=== PATIENT | male | born 1980 | race Caucasian/White ===

== ENCOUNTER 2023-12-21 01:50 | Emergency (ER) | payer SELFPAY ==
[2023-12-21 01:52] VITALS: BP 145/80; PULSE 68; RESP 22; TEMP 35.4; O2SAT 98; BMI 28.2
[2023-12-21] MEDS: 0.9% Normal Saline (1000mL) 1,000 ML 999 ML IV (02:34)
[2023-12-21 02:39] LABS: Mucous, Urine 0 SEEN /hpf (<or=2+)
[2023-12-21 02:40] LABS: Color, Urine Yellow (Yellow); Glucose, Dipstick Normal (Normal); Ketone-Dipstick 5 mg/dl (Negative); Leukocyte Esterase-Dipstick 25 /ul (Negative); Nitrite-Dipstick Positive (Negative); Occult Blood-Urine 250 /ul (Negative); Protein-Dipstick 30 mg/dl (Negative); Urine Bilirubin Dipstick Negative (Negative); Urine Clarity Sl. Cloudy (Clear); Urine Urobilinogen 1 mg/dl (Normal)
--- NOTE | 2023-12-21 02:46 | CT_ITS ---
STUDY: CT ABDOMEN AND PELVIS WITH CONTRAST - URINARY TRACT REASON FOR EXAM: Male, 43 years old. rlq abdominal pain RADIATION DOSAGE (If Supplied By Facility): CTDIvol = ( 16.70 ) mGy, DLP = ( 1073.99 ) mGycm TECHNIQUE: IV 100mL Isovue-370 was administered. Transaxial images were obtained from the dome of the diaphragm to the symphysis pubis in the arterial, nephrographic and excretory phases. Multiplanar coronal and sagittal images were reformatted. The protocol utilizes one or more of the following dose reduction techniques: automated exposure control, adjustment of mA and/or kV according to patient size,and/or use of iterative reconstruction technique. COMPARISON: No relevant prior comparison study available FINDINGS: The visualized lung bases are unremarkable. The visualized portions of the heart are within normal limits. Small cysts in the liver. Normal gallbladder and extrahepatic biliary system. Normal spleen. Normal pancreas. Normal bilateral adrenal glands. Normal visualized stomach. Normal small intestine. There are multiple colonic diverticula consistent with diverticulosis. The appendix is visualized and appears normal. Normal abdominal aorta. No retroperitoneal adenopathy. There is a nonobstructive stone in the right kidney measures 5 mm. There is moderate right hydronephrosis due to 5 mm stone in the mid right ureter. Normal left kidney. Normal urinary bladder. Normal abdominal wall. Normal osseous structures. CT/Abdomen/Pelvis W IV Cont ONLY IMPRESSION: There is a nonobstructive stone in the right kidney measures 5 mm. There is moderate right hydronephrosis due to 5 mm stone in the mid right ureter. Electronically Signed: Edward Chavez MD at 3:54 EDT ,
[2023-12-21 02:51] LABS: ALB/GLOB Ratio 1.2 RATIO (0.9-2.4); AST(SGOT) 33 U/L (15-37); Alanine Aminotransfer ALT/SGPT 102 U/L (16-61); Albumin, Serum 4.3 g/dL (3.2-5.0); Alkaline Phosphatase 76 U/L (45-117); Anion Gap 8 (5-15); BUN 15 mg/dL (7-18); BUN/Creat Ratio 12.7 RATIO (10-20); Calcium,Total 9.2 mg/dL (8.5-10.1); Chloride 104 mmol/L (98-107); Creatinine, Serum 1.18 mg/dL (0.70-1.30); EST Glomerular Filtration Rate 71 mL/min (>60); Est Glom Filt Rate - Afr Amer 86 mL/min (>60); Estimated Creatinine Clearance 92.54 ml/min; Globulin 3.6 g/dL (2.2-4.2); Glucose 135 mg/dL (74-106); Lipase 20 U/L (13-75); Potassium 3.8 mmol/L (3.5-5.1); Protein, Total 7.9 g/dL (6.4-8.2); Sodium Level 138 mmol/L (136-145)
[2023-12-21] MEDS: Ondansetron 4 MG/2 ML Vial IV (02:56)
[2023-12-21] MEDS: Morphine 4 MG/ML Syringe IV (02:56)
[2023-12-21 02:59] LABS: Absolute Lymphocyte Count 2.47 X10^3/uL (0.83-4.51); Absolute Neutrophil Count 12.7 X10^3/uL (2.0-7.7); Basophil# 0.08 X10^3/uL; Basophil% 0.5 % (0-1); Eosinophils% 0.6 % (0-5); Hematocrit 46.2 % (40-54); Hemoglobin 15.6 g/dL (13.0-16.5); Lymphocyte # 2.47 X10^3/ul (0.83-4.51); Lymphocyte % 14.6 % (19-41); Mean Corp Hgb Conc 33.8 g/dL (32-36); Mean Corpuscular Hgb 28.8 pg (27.0-32.0); Mean Corpuscular Volume 85.4 fL (80-94); Mean Platelet Vol. 9.5 fl (6.2-12.0); Monocyte# 1.46 X10^3/uL; Monocyte% 8.6 % (0-10); NRBC Flagged by Analyzer 0 % (0-5); Neutrophil # 12.71 X10^3/uL (2.7-7.7); Neutrophil % 75.2 % (47-70); Platelet Count 350 K/mm3 (150-450); RBC Distribution Width CV 12.9 % (11.6-14.6); RBC Distribution Width SD 39.8 fl (35.1-43.9); Red Blood Count 5.41 M/mm3 (4.6-6.2); White Blood Count 16.9 K/mm3 (4.4-11.0)
[2023-12-21 03:17] LABS: Lipase 20 U/L (13-75)
--- NOTE | 2023-12-21 03:29 | ED.VIS.GI ---
HPI HPI - GI History of Present Illness Chief Complaint: Abd Pain Narrative Narrative: 43-year-old male presenting with right-sided abdominal pain which woke him up from sleep at about midnight. He states it feels like it goes from the right side of his back into the right side of his abdomen and down into his groin. No history of kidney stones. No dysuria or hematuria. No fever. Patient does admit that he had some diarrhea this evening after this all started. No black or bloody stools. He also had nausea and vomiting with no hematemesis or coffee-ground emesis. Patient states he is never had pain like this before. [place] from out [place] town. [facility] Medical History PTSD (post-traumatic stress disorder) Home Medications ?Medication ?Instructions ?Recorded ?Last Taken ?Type ondansetron 4 mg disintegrating 4 mg PO Q8H PRN PRN Nausea #14 tabs 12/21/23 Unknown Rx tablet oxycodone 5 mg capsule 5 mg PO Q8H PRN pain 3 days #12 12/21/23 Unknown Rx caps sulfamethoxazole 800 1 tab PO BID #20 tabs 12/21/23 Unknown Rx mg-trimethoprim 160 mg tablet (Bactrim DS) Allergy/AdvReac Type Severity Reaction Status Date / Time shellfish derived Allergy Anaphylaxis Verified 12/21/23 01:54 Social History Smoking Status: Former smoker ROS ROS ED Constitutional Constitutional ED: Denies chills, fever(s) or sweats Eyes Eyes: Denies blurry vision or change in vision ENT ENT ED: Denies ear pain or sore throat Cardiovascular Cardiovascular: Denies chest pain, palpitations or racing heartbeat Respiratory/Chest Respiratory/Chest: Denies cough, dyspnea or sputum Gastrointestinal Gastrointestinal: Reports abdominal pain, diarrhea, nausea and vomiting; Denies constipation Genitourinary Genitourinary ED: Denies dysuria, hematuria or urinary frequency Musculoskeletal Musculoskeletal: Denies arthralgias, myalgias or neck pain Integumentary Denies abscess, Abrasions or rash Neurologic Neurologic: Denies headache(s), paresthesias or weakness Psychiatric Psychiatric: Denies anxiety, depression, suicidal ideation or suicidal thoughts Endocrine Endocrinology: Denies polydipsia or polyuria EXAM Physical Exam Const Vital Signs: 12/21/23 01:52 12/21/23 03:51 Temperature 95.8 F L 97.6 F L Temperature Source Temporal Oral Pulse Rate 68 72 Respiratory Rate 22 H 15 Blood Pressure 145/80 H 134/69 H Blood Pressure Mean 101 90 Pulse Ox 98 97 Oxygen Delivery Method Room Air Room Air Positive well nourished General Appearance ED: NAD HEENT Reports moist mucous membranes Eyes PERRL and EOMs intact bilaterally Resp normal respiratory effort and clear to auscultation bilaterally Auscultation: Negative for rales, rhonchi or wheezes Cardio regular rate and regular rhythm GI Inspection: other Palpation: tender RLQ and RUQ Back/Spine General Back: CVA tenderness right Neuro CN's II-XII intact bilaterally Sensorium / Orientation: alert Psych mental status grossly normal and thought process normal Skin no wounds MDM MDM MDM Narrative Medical decision making narrative: Patient presenting with abdominal pain. Patient presenting with right flank pain. Differential includes colitis, diverticulitis, gastritis, pancreatitis, acute cholecystitis, constipation, appendicitis, UTI, pyelonephritis, calculi, ureteral calculi, obstruction, malignancy, dehydration, electrolyte abnormalities. CBC will be obtained to assess white blood cell count, hemoglobin, platelets. CMP to assess renal function, electrolytes, liver function, glucose. Lipase to assess for pancreatitis. Urinalysis to assess for UTI. CBC shows leukocytosis of 16.9. Hemoglobin 15.6. Platelets are normal at 350. Renal function and electrolytes within normal limits. ALT slightly elevated at 102 however the rest of his liver enzymes are normal. Lipase 20. Patient's urinalysis shows positive nitrites with 250 occult blood, there is 0-5 white blood cells and 0-[address] of the abdomen pelvis shows a 5 mm ureteral stone and hydronephrosis on the right. Patient does have an elevated white blood cell count today at 16.9 and I think it is likely reactive however with the mildly abnormal urinalysis and leukocytosis I will cover him with Bactrim. He was given oxycodone and Zofran for home. Return precautions were discussed. I did give him urology follow-up however the patient lives out of town he may have to seek urology needs home. Impression: 1. 5 mm ureteral stone 2. Hydronephrosis Lab Data Attestation: I reviewed the patient's lab results. Labs: Laboratory Results - last 24 hr 12/21/23 12/21/23 12/21/23 02:03 02:03 02:35 WBC 16.9 H RBC 5.41 Hgb 15.6 Hct 46.2 MCV 85.4 MCH 28.8 MCHC 33.8 RDW Std Deviation 39.8 RDW Coeff of Franky 12.9 Plt Count 350 MPV 9.5 Immature Gran % (Auto) 0.500 Neut % (Auto) 75.2 H Lymph % (Auto) 14.6 L Emery % (Auto) 8.6 Eos % (Auto) 0.6 Baso % (Auto) 0.5 Absolute Neuts (auto) 12.7 H Absolute Lymphs (auto) 2.47 Nucleated RBC % 0 Sodium 138 Potassium 3.8 Chloride 104 Carbon Dioxide 26.0 Anion Gap 8 BUN 15 Creatinine 1.18 Estim Creat Clear Calc 92.54 Est GFR (MDRD) Af Amer 86 Est GFR (MDRD) Non-Af 71 BUN/Creatinine Ratio 12.7 Glucose 135 H Calcium 9.2 Total Bilirubin 0.60 AST 33 ALT 102 H Alkaline Phosphatase 76 Total Protein 7.9 Albumin 4.3 Globulin 3.6 Albumin/Globulin Ratio 1.2 Lipase 20 20 Urine Color Yellow Urine Clarity Sl. Cloudy Urine pH 5.0 Ur Specific [place] 1.030 Urine Protein 30 H Urine Glucose (UA) Normal Urine Ketones 5 H Urine Occult Blood 250 H Urine Nitrite Positive H Urine Bilirubin Negative Urine Urobilinogen 1 H Ur Leukocyte Esterase 25 H Urine RBC 10-25 SEEN Urine WBC 0-5 SEEN Ur Squamous Epith Cells 0-5 SEEN Amorphous Sediment 1+ Urine Bacteria 1+ Urine Mucus 0 SEEN Radiography Diagnostic Testing: Clinical Impression(s) from Imaging Studies Abdomen/Pelvis CT 12/21/23 02:46 IMPRESSION: There is a nonobstructive stone in the right kidney measures 5 mm. There is moderate right hydronephrosis due to 5 mm stone in the mid right ureter. Electronically Signed: Edward Chavez MD at 3:54 EDT , Discharge Plan Triage Chief Complaint: Abd Pain ED Provider: Wisam Mo Dx/Rx/DC Orders Instructions: ED Kidney Stone with Pain Prescriptions: New oxycodone 5 mg capsule 5 mg PO Q8H PRN (Reason: pain) 3 Days Qty: 12 0RF ondansetron 4 mg tablet,disintegrating 4 mg PO Q8H PRN PRN (Reason: Nausea) Qty: 14 0RF sulfamethoxazole-trimethoprim [Bactrim DS] 800-160 mg tablet 1 tab PO BID Qty: 20 0RF Primary Care Provider: Care Physician,No Primary Referrals: Alec Garcia MD [Med Staff - Active Staff] - As Needed Care Physician,No Primary [Primary Care Provider] - Print Language: Lao Disposition Disposition: Home, Self Care
[2023-12-21 03:41] LABS: Amorphous Sediment 1+; Bacteria 1+ /hpf (None Seen); Red Blood Cells-Urine 10-25 SEEN /hpf (0-5); Squamous Epithelial Cells - UA 0-5 SEEN /hpf (0-5); White Blood Cells 0-5 SEEN /hpf (0-5)
[2023-12-21 03:51] VITALS: BP 134/69; PULSE 72; RESP 15; TEMP 36.4; O2SAT 97
[2023-12-21] MEDS: Ketorolac 15 MG/ML Vial IV (04:36)
[2023-12-21] MEDS: Smz/Tmp Ds Tablet 1 TABLET PO (04:36)
[2023-12-21 04:45] VITALS: BP 125/73; PULSE 72; RESP 15; TEMP 36.6; O2SAT 99
== END 2023-12-21 05:40 | disposition home or self-care (01) ==
PROVIDERS: Emergency Provider Student in an Organized Health Care Education/Training Program; Visit Provider Student in an Organized Health Care Education/Training Program
DX: N13.2 Hydronephrosis with renal and ureteral calculous obstruction (principal); Z87.891 Personal history of nicotine dependence
CPT/HCPCS: 74177; 80053; 81001; 83690; 85025; 87086; 96361; 96374; 96375; 96376; 99282; J7030; Q9967; A4216; J2405